=== PATIENT | male | born 1970 | race American Indian/Alaskan Native ===

== ENCOUNTER 2018-06-28 16:01 | Emergency (ER) | payer OTHER ==
[~2018-06-28] VITALS: Ht 188 cm; Wt 86.2 kg
--- NOTE | 2018-06-28 16:56 | NUR ---
Patient discharged to home in stable conditon. Written and verbal after care instructions given to patient. Patient verbalizes understanding of instructions.
== END 2018-06-28 16:57 | disposition home or self-care (01) ==
LOC: ER 16:04
DX: F41.0 Panic disorder [episodic paroxysmal anxiety] (principal)
CPT/HCPCS: 93005; 99284; A4663